=== PATIENT | male | born 1960 | race Caucasian/White ===

== ENCOUNTER 2017-03-12 04:29 | Day surgery (SDC) | payer OTHER ==
[2017-03-10 17:24] LABS: BASOPHILS 0.2 %; BASOPHILS ABSOLUTE 0.01 10/3/uL (0.0-0.16); EOSINOPHILS 1.5 %; EOSINOPHILS ABSOLUTE 0.08 10/3/uL (0.0-0.53); HEMATOCRIT 38.3 % (40.0-51.0); HEMOGLOBIN 13.2 g/dL (13.6-17.8); IMMATURE GRANULOCYTES 0.4 %; IMMATURE GRANULOCYTES ABSOLUTE 0.02 10/3/uL (0.0-0.11); MEAN CORPUS HGB CONC 34.5 g/dL (32.0-36.0); MEAN PLATELET VOLUME 9.2 fL (9.2-13.0); MONOCYTES 7.5 %; MONOCYTES ABSOLUTE 0.41 10/3/uL (0.21-1.20); NEUTROPHILS 57.4 %; NEUTROPHILS ABSOLUTE 3.13 10/3/uL (2.02-8.40); RBC DISTRIBUTION WIDTH 15.1 % (12.0-16.0); RED CELL COUNT 4.24 10/6/uL (4.7-6.1)
[2017-03-10 17:28] LABS: MANUAL DIFF NO %; MEAN CORPUSCULAR HEMOGLOB 31.1 pg (26.0-34.0); MEAN CORPUSCULAR VOLUME 90.3 fL (80-100); PLATELET COUNT 211 10/3/uL (150-400); WHITE BLOOD CELLS 5.5 10/3/uL (4.5-10.5)
[2017-03-10 17:42] LABS: ALBUMIN 3.3 G/DL (3.5-5.0); ALKALINE PHOSPHATASE 71 U/L (45-117); CALCIUM, SERUM 8.7 MG/DL (8.5-10.4); CHLORIDE, SERUM 107 MMOL/L (96-112); CO2 (CARBON DIOXIDE) 25 MMOL/L (24-34); CREATININE 0.91 MG/DL (0.70-1.30); GFR AFRICAN AMERICAN 109 ML/MIN (>=60); GFR NON AFRICAN AMERICAN 94 ML/MIN (>=60); GLOBULIN 3.4 G/DL (2.5-4.1); SGOT(AST) 36 U/L (5-40); SGPT(ALT) 38 U/L (5-65); TOTAL BILIRUBIN 0.6 MG/DL (0-1.2); TOTAL PROTEIN 6.7 G/DL (6.0-8.5)
[2017-03-10 17:43] LABS: BUN (BLOOD UREA NITROGEN) 14 MG/DL (6-23); GLUCOSE, SERUM 145 MG/DL (60-99); SODIUM, SERUM 140 MMOL/L (135-148)
--- NOTE | ~2017-03-12 | OP ---
Record Of Operation [facility] [address] [place]. [address] NAME: BRITTANY SHELTON : 60 STATUS : [facility]#: [id number] AGE: 56 ADM/REG DATE : 03/12/17 MR#: [id number] REPORT SERV DATE: 03/13/17 DICTATED BY: LAWRENCE SANFORD DATE: 03/13/17 REPORT STATUS : Draft TRANSCRIBED BY: MODL DATE: 03/13/17 DATE OF PROCEDURE: 03/12/2017 PREOPERATIVE DIAGNOSIS: Subcutaneous left thigh mass. POSTOPERATIVE DIAGNOSIS: Subcutaneous left thigh mass. PROCEDURE PERFORMED: Excision of subcutaneous left thigh mass measuring over 3 cm. ANESTHESIA: General. ESTIMATED BLOOD LOSS: Minimal. SPECIMEN: Left thigh mass that grossly resembled a lipoma. BRIEF HISTORY: Mr. Shelton is a 56-year-old gentleman with multiple medical problems including myasthenia gravis, who presents with what he describes as a palpable mass on the anterior aspect of his left thigh. He had imaging performed that confirmed this to be a lipoma and due to the very painful nature, he opted to have this excised. The risks, benefits, and alternatives to surgery were explained to Mr. Shelton in detail including the risk of seroma formation and possibility that this lipoma is not the source of this exquisite pain. He stated understanding and wished to have this excised. DETAILS: Following informed consent, I had the patient identify the area in the preoperative holding, and I marked the outline of this. We both confirmed this to be a proper site and location. The patient was then transferred to operative suite, and after induction of anesthesia, the left thigh was prepped and draped in usual sterile fashion. Incision was made directly on top of the mass that was outlined. Dissection carried through skin and subcutaneous tissues. Irregular shaped fatty tissue was then excised and we continued our dissection to the fascia and opened the fascia partially and saw viable muscle, did not appreciate any additional palpable masses, and the subcutaneous mass did not appear to traverse the muscle. The wound was copiously irrigated. Hemostasis secured with cautery. Skin edges were reapproximated using 3-0 Vicryl subdermal, followed by 4-0 Monocryl subcuticular suture, and Dermabond placed. At the completion of the case, all sponge and needle counts were correct. The patient was extubated and transferred to recovery room in satisfactory condition having suffered no apparent perioperative complications. JAE/JUDD Lawrence Sanford M.D. / [id number] Record Of Operation [address] [place]. [address] NAME: VALERIABRITTANYMICHAEL LOTT : 60 STATUS : [facility] PAT#: [id number] AGE: 56 ADM/REG DATE : 03/12/17 MR#: [id number] REPORT SERV DATE: 03/13/17 DICTATED BY: LAWRENCE SANFORD DATE: 03/13/17 REPORT STATUS : Draft TRANSCRIBED BY: JUDD DATE: 03/13/17 CC: Charlotte Tilley M.D.
[~2017-03-12 04:29] MED LIST: ACIPHEX PO; ANUSOL-HC25 MG PR; ART2 PO; ASAB PO; AVINZA45 MG PO; B121000P IM; BACDS PO; BACTROCR TOP; BACTROINT TOP; CRESTOR10 PO; CYTO5 PO; DEPO-TESTOS100 MG/ML IM; DIL2TAB PO; DIL4TAB PO; FERROUS SULFATE PO; FLEX PO; FLOMAX4 PO; FORTAMET1000 MG PO; GLUCPH PO; H2 PO; HUMALOG SC; HUMULIN R1 ML SC; IMU PO; KLONO1 PO; LANTUS SC; LEVEMIR SC; LEVITRA20 MG PO; LEVOTHYROXIN75 MCG PO; LIBRAX PO; LIPITOR20 PO; LOFIB160 PO; LOM PO; LOPID6 PO; LYRICA150 MG PO; MAGOX4 PO; MCZ125 PO; MCZ25 PO; MEP50TAB PO; MINIPRESS 1 MG C1 MG OR; MINIPRESS 2 MG C2 MG OR; MINIPRESS2 MG PO; MORPHINE ER PO; NAFTIN TOP; NAPRELAN375 MG PO; NASCOBAL; NAVANE2 MG PO; NEUR800 PO; NEXIUM40 PO; NOVOPEN SC; NUCYNTA50 MG PO; NUVIGIL250 MG PO; OS500+D PO; PROAIR HFA INH; PROAM25 PO; PROTONIX PO; PROTONIXIV IV; PYRID60 PO; REM15 PO; REMERON45 MG PO; REST15 PO; RISP2 PO; SILVADINE CREAM TOP; SYN1 PO; TESTOST CYP100 MG/ML IM; TESTOST CYP200 MG/ML IM; TOF25 PO; TOF50 PO; TOPAMAX100 PO; TOUJEO SC; VENTOLIN HFA INH; VIT B 12 IM; VITAMIN D1000 UNI1 PO; VITD PO; VOLTAREN1 % TOP; XYZAL5 MG PO; ZANTAC150 MG PO; ZYDONE1 TA2 PO
== END 2017-03-12 09:18 | disposition home or self-care (01) ==
LOC: SDC 04:29
PROVIDERS: Surgery
PROC: 0YB Anatomical Regions, Lower Extremities, Excision (ICD-10-PCS; principal; 2017-03-12 05:45)
DX: E65 Localized adiposity (principal); E11.9 Type 2 diabetes mellitus without complications; I10 Essential (primary) hypertension; K21.9 Gastro-esophageal reflux disease without esophagitis; E78.00 Pure hypercholesterolemia, unspecified; J45.909 Unspecified asthma, uncomplicated; G47.33 Obstructive sleep apnea (adult) (pediatric); G40.909 Epilepsy, unspecified, not intractable, without status epilepticus; F43.10 Post-traumatic stress disorder, unspecified; Z99.81 Dependence on supplemental oxygen; Z88.5 Allergy status to narcotic agent; Z88.1 Allergy status to other antibiotic agents; Z88.8 Allergy status to other drugs, medicaments and biological substances; Z98.890 Other specified postprocedural states
CPT/HCPCS: 80053; 82962; 85025; 88304; 93005; J0330; J0690; J2250; J2405; J3010